=== PATIENT | female | born 1975 | race Caucasian/White ===

== ENCOUNTER 2025-04-19 12:20 | Emergency (ER) | payer OTHER, SELFPAY ==
[2025-04-19 12:22] VITALS: BP 153/104
[2025-04-19 12:48] LABS: % Basophils 1.2 % (0-2); % Eosinophils 2.3 % (0-6); % Immature Granulocytes 0.2 % (0-0.5); % Lymphocytes 28.2 % (20.5-51.1); % Monocytes 5.8 % (1.7-9.3); % Neutrophils 62.3 % (42.2-75.2); Absolute Basophils 0.1 10^3/uL (0-0.2); Absolute Eosinophils 0.1 10^3/uL (0-0.7); Absolute Lymphocytes 1.7 10^3/uL (1.2-3.4); Absolute Monocytes 0.4 10^3/uL (0.1-0.6); Absolute Neutrophils 3.7 10^3/uL (1.4-6.5); Hemoglobin 12.7 g/dL (12.0-16.0); Mean Corp Hgb Conc. 33.4 g/dL (33.0-37.0); Mean Corpuscular Volume 77.7 fL (81.0-99.0); Mean Platelet Volume 10.9 fL (7.4-10.4); Nucleated Red Blood Cells % 0 %; Platelet Count 241 10^3/uL (130-400); Red Blood Cell Count 4.89 10^6/uL (4.20-5.40)
[2025-04-19 13:13] LABS: ALT (SGPT) 18 U/L (0-35); AST (SGOT) 17 U/L (14-36); Albumin 4.3 g/dl (3.5-5.0); Alkaline Phosphatase 60 U/L (38-126); Blood Urea Nitrogen 19 mg/dl (7-17); Calcium 9.6 mg/dl (8.4-10.2); Carbon Dioxide 23 mmol/L (22-30); Chloride 111 mmol/L (98-107); Glucose 131 mg/dl (70-99); Potassium 3.7 mmol/L (3.5-5.1); Sodium 143 mmol/L (135-145); Total Bilirubin 0.9 mg/dl (0.2-1.3); Total Protein 7.1 g/dl (6.3-8.2); eGFR > 60.00
[2025-04-19 13:21] VITALS: BMI 49.5
[2025-04-19 13:24] LABS: Troponin I < 0.012 ng/ml
[2025-04-19 13:39] VITALS: BP 122/99
[2025-04-19 14:00] VITALS: BP 140/92
[2025-04-19 14:42] VITALS: BP 138/62
--- NOTE | 2025-04-19 14:52 | ED.GENMED ---
History of Present Illness
General
Chief Complaint: Blood Pressure Problem
Time Seen by Provider: 04/19/25 13:56
History of Present Illness
History of Present Illness:
49-year-old female with history of hypertension presents to the emergency department for eval of dizziness and elevated blood in the past several days, she also notes intermittent headaches. She reports the dizziness seems to come and go randomly
particularly worse when she gets up out of bed in the morning. Currently feels well Hospital. She also endorses significant life stress related to work. She currently denies headache, denies vision changes, chest pain, or shortness of breath.
She is on hydrochlorothiazide and lisinopril and reports compliance with medications
Review of Systems
Review of Systems
Allergies reviewed?: Yes
All Other Systems: ROS reviewed and negative except as documented in HPI and ROS
Phy Exam
Physical Exam
Physical Exam:
GEN: Well appearing, NAD, WDWN
HEENT: Oral mucosa moist, no scleral icterus
Cardiac: Regular rate and rhythm, no murmur
Lung: No respiratory distress, no tachypnea
MSK: No gross deformity or injuries
Skin: Good color, no pallor or jaundice, no rashes
Neuro: AO x3, moves all extremities freely, cranial nerves II through XII grossly intact, no nystagmus
Psych: Calm, cooperative
Course
Orders/Labs/Results
Orders:
Orders
04/19/25 12:25
Electrocardiogram (*1) Urgent
Reason for Study: Vertigo / Dizzy
CT Head W/o Iv Contrast Urgent
Comment:
Reason For Exam: dizziness
EKG- Treatment ONCE
04/19/25 12:40
Complete Blood Count/With Diff Urgent
Comprehensive Metabolic Panel Urgent
Troponin I Urgent
Abnormal Lab Results
04/19/25
12:40
MCV 77.7 L fL
(81.0-99.0)
MCH 26.0 L pg
(27.0-31.0)
MPV 10.9 H fL
(7.4-10.4)
Chloride 111 H mmol/L
(98-107)
BUN 19 H mg/dl
(7-17)
Glucose 131 H mg/dl
(70-99)
04/19/25 12:40
04/19/25 12:40
Vital Signs
Initial and Last Documented VS:
Initial Vital Signs
Temp Pulse Resp BP Pulse Ox
98.0 F 82 20 153/104 98
04/19/25 12:22 04/19/25 12:22 04/19/25 12:22 04/19/25 12:22 04/19/25 12:22
Last Documented Vital Signs
Temp Pulse Resp BP Pulse Ox
98.0 F 82 20 138/62 94
04/19/25 12:22 04/19/25 12:22 04/19/25 12:22 04/19/25 14:42 04/19/25 14:45
MDM/Problems Addressed
MDM/Problems Addressed:
Patient's EKG independently turbid by me shows no ischemic changes, no arrhythmias noted on telemetry. Her CT of the head shows no acute neurologic abnormalities. Her dizziness is most likely benign vertigo given the rapid onset and rapid
resolution of symptoms. I suspect the majority of her complaints are psychosomatic in nature given that she had a lengthy conversation with me regarding work stressors. Her blood pressure is not significantly elevated in the ED I have encouraged
her to monitor this as an outpatient and discuss any further medication adjustments with her primary care physician. Certainly no evidence for hypertensive crisis at this time. Discharged in stable condition
*Critical Care Note
Total Time (30-74mins, 75-104mins- exclusive of procedures): Not Applicable
ED Attending Note
-
Portions of this chart may have been created with voice recognition software.� Occasional wrong word or��sound alike� substitutions may have occurred due to the inherent limitations of voice recognition software.
Discharge Plan
Departure
Patient Disposition: Home (Routine Discharge)
Date of Disposition: 04/19/25
Time of Disposition: 14:52
Patient with high blood pressure during this ER visit?: No
Discharge Problem:
Dizziness
Instructions: High Blood Pressure (DC)
Prescriptions:
No Action
lisinopril 20 mg Tablet
20 mg PO DAILY
hydrochlorothiazide
1 tab PO DAILY
Referrals:
Lian Padilla MD [Family Provider, [facility]]
Stand Alone Forms: Return to Work
Activity Restrictions/Additional Instructions:
Monitor your blood pressure no more than twice per week and follow-up with your primary care physician if symptoms do not improve. In regards to your dizziness/vertigo symptoms please consider following up with outpatient physical therapy if the
symptoms continue or worsen
Interventions
Interventions:
*Risk Screen - Suicide Last Done: 04/19/25 13:41
*General Assessment Last Done: 04/19/25 12:22
*Neglect/Abuse Screening Last Done: 04/19/25 13:40
*ED- Fall Risk Assessment Last Done: 04/19/25 13:23
*ED COVID-19 Vaccine History Last Done: 04/19/25 13:23
*Nursing Disposition Last Done: 04/19/25 15:11
ED- Cardiac Assessment Last Done: 04/19/25 13:39
ED- Neurological Assessment Last Done: 04/19/25 13:39
ED- Pulmonary Assessment Last Done: 04/19/25 13:39
Discharge Date and Time
Discharge Date/Time: 04/19/25 15:11
Print Language: LAO
== END 2025-04-19 15:11 | disposition home or self-care (01) ==
LOC: EMR 12:20
PROVIDERS: EMERGENCY PHYSICIAN Emergency Medicine; FAMILY PHYSICIAN Family Medicine
DX: R42 Dizziness and giddiness (principal); R51.9 Headache, unspecified; I10 Essential (primary) hypertension; Z56.6 Other physical and mental strain related to work; Z79.899 Other long term (current) drug therapy
CPT/HCPCS: 99285; 70450; 80053; 84484; 85025; 93005